=== PATIENT | female | born 1995 | race Two or more races ===

== ENCOUNTER → 2025-03-23 | Outpatient (CLI) | payer MEDICAID, SELFPAY ==
--- NOTE | 2025-03-23 15:47 | XR_ITS ---
Examination: Breast ultrasound, unilateral, left complete Date and time of exam: March 23, 2025 1646 hours INDICATIONS: Left nipple discharge with pain beginning 6 months ago Technique: Real-time garcía scale ultrasonographic imaging performed left breast including all 4 quadrants as well as nipple retroareolar and axillary region. Findings: No cystic or solid mass Impression: BI-RADS Category 1: Negative study
== END | disposition home or self-care (01) ==
LOC: CDIM 15:29
PROVIDERS: PCP Physician Assistant Medical; Referring Provider Physician Assistant Medical; Visit Provider Physician Assistant Medical
DX: N64.52 Nipple discharge (principal)
CPT/HCPCS: 76641

== ENCOUNTER 2025-04-11 23:52 | Emergency (ER) | payer MEDICAID, SELFPAY ==
[2025-04-11 23:52] VITALS: BMI 35.9
[2025-04-11 23:58] VITALS: BP 133/85; PULSE 88; RESP 20; TEMP 36.9; O2SAT 96
[2025-04-12] MEDS: DiphenhydrAMINE INJ 50 MG/ML VIAL 25 MG IVP (00:50)
[2025-04-12] MEDS: MethylPREDNISolone SOD SUCC 62.5 MG/ML 2ML VIAL 125 MG IVP (00:55)
--- NOTE | 2025-04-12 00:55 | EDNOTE_ITS ---
<Statement entered by Ana Calloway MD - 04/14/25 03:42> As co-signing physician, I was present and available for consult prn. I concur with the plan and care as documented by the midlevel provider. ED Allergic Reaction RME/HPI General Chief complaint: Allergic Reaction Stated complaint: ALLERGIC REACTION TO SULFA Time Seen by Provider: 04/12/25 00:31 Arrival date/time: 04/11/25 23:52 29F with no significant PMH presents to ED with 30 min of generalized itchy rash and swelling after taking Bactrim for the first time for a paronychia. Limitations: no limitations Related Data Previous Rx's ?Medication ?Instructions ?Recorded doxycycline hyclate 100 mg tablet 100 mg PO BID 7 days #14 tabs 04/12/25 prednisone 20 mg tablet 20 mg PO BID 3 days #6 tabs 04/12/25 Allergies Allergy/AdvReac Type Severity Reaction Status Date / Time sulfamethoxazole (From Allergy Intermediate Rash Verified 04/12/25 02:48 Bactrim) trimethoprim (From Bactrim) Allergy Intermediate Rash Verified 04/12/25 02:48 Review of Systems Review of Systems Systems Reviewed: All systems reviewed, normal except as documented Constitutional Constitutional: Reports system reviewed and no additional complaints, except as documented, Denies fever(s) and Denies headache(s) ENT Ears, Nose, Mouth, and Throat: Denies disequilibrium and Denies headache(s) Cardiovascular Cardiovascular: Reports system reviewed and no additional complaints, except as documented, Denies chest pain and Denies dyspnea Respiratory Respiratory: Reports system reviewed and no additional complaints, except as documented, Denies cough and Denies dyspnea Gastrointestinal Gastrointestinal: Reports system reviewed and no additional complaints, except as documented, Denies abdominal pain, Denies nausea and Denies vomiting Integumentary/Breasts Skin/Breast: Reports as per HPI, Reports pruritus and Reports rash Neurologic Neurologic: Reports system reviewed and no additional complaints, except as documented, Denies confusion, Denies disequilibrium and Denies headache(s) Psychiatric Psychiatric: Denies confusion Past Medical History Social History SMOKING STATUS: Never smoker ED Exam General Limitations: Present no limitations General appearance: Present alert and in no apparent distress Head Head exam: Present atraumatic Eye Eye exam: Present normal appearance, PERRL and EOMI ENT ENT exam: Present normal exam, normal oropharynx and mucous membranes moist Neck Neck exam: Present normal inspection, full ROM and trachea midline Chest Chest inspection: Present normal inspection and symmetric chest wall rise Respiratory Respiratory exam: Present normal lung sounds bilaterally Cardiovascular Cardiovascular exam: Present regular rate, normal rhythm and normal heart sounds Abdominal Exam Abdominal exam: Present soft and normal bowel sounds Extremities Exam Extremities exam: Present full ROM Expanded Lower Extremity Exam Foot/toe exam: Present full ROM and tenderness (R big toenail paronychia ) Back Exam Back exam: Present normal inspection and full ROM Neurological Exam Neurological exam: Present alert, oriented X3 and CN II-XII intact Psychiatric Psychiatric exam: Present normal affect and normal mood Skin Skin exam: Present warm, dry, intact, normal color and rash Course Quality Measures none Orders Category Date Time Status Optical Scientist Q4H START 00 Care 04/12/25 00:31 Completed Insert IV NOW Care 04/12/25 00:31 Completed DiphenhydrAMINE INJ [Benadryl Inj] Med 04/12/25 00:31 Discontinued 25 mg IVP X1 ONE Doxycycline [Vibramycin] Med 04/12/25 02:27 Discontinued 100 mg PO X1 ONE Famotidine Inj [Pepcid Inj] Med 04/12/25 00:31 Discontinued 20 mg IVP X1 ONE MethylPREDNISolone.* [SoluMEDROL Inj] Med 04/12/25 00:31 Discontinued 125 mg IVP X1 ONE Vital Signs Vital signs: Vital Signs Temperature 98.4 F 04/11/25 23:58 Pulse Rate 88 04/11/25 23:58 Respiratory Rate 20 04/11/25 23:58 Blood Pressure 133/85 H 04/11/25 23:58 Pulse Oximetry (%) 96 04/11/25 23:58 Oxygen Delivery Method Room Air 04/11/25 23:58 O2 at 96% on RA and WNLs Allergic Reaction MDM Narrative MDM Narrative:: 29F with no significant PMH presents to ED with 30 min of generalized itchy rash and swelling after taking Bactrim for the first time for a paronychia. Physical exam reveals generalized urticarial rash and swelling. Mildly increased WOB, but oropharynx clear and RRR. Mild paronychia around R big toenail. Patient is afebrile, alert, but anxious. Meds relieved symptoms. Will swab Bactrim with doxy for paronychia. Patient data External records reviewed:: None Clinical information provided by:: patient Social determinants that could affect healthcare access:: none Patient has the following chronic illnesses:: none How is presenting disease/condition affected by chronic disease/condition?: no chronic disease Evaluation data The following diagnostics were reviewed and interpreted by me:: other (specify) (none) Lab and/or radiology exams considered but not ordered:: not ordered Interpretation Summary: n/a Medications / Prescriptions Medications or Prescriptions considered but not ordered:: ordered Medication administrations:: Medication Administration History Discontinued Medications Diphenhydramine HCl (Diphenhydramine Inj 50 Mg/Ml Vial) 25 mg IVP X1 ONE Stop: 04/12/25 00:32 Last Admin: 04/12/25 00:50 Dose: 25 mg Documented By: JAZMIN Doxycycline Hyclate (Doxycycline 100 Mg Tablet) 100 mg PO X1 ONE Stop: 04/12/25 02:28 Last Admin: 04/12/25 02:43 Dose: 100 mg Documented By: JAZMIN Famotidine (Famotidine Inj 10 Mg/Ml Vial 2 Ml) 20 mg IVP X1 ONE Stop: 04/12/25 00:32 Last Admin: 04/12/25 01:00 Dose: 20 mg Documented By: JAZMIN Methylprednisolone Sodium Succinate (Methylprednisolone Sod Succ 62.5 Mg/Ml 2ml Vial) 125 mg IVP X1 ONE Stop: 04/12/25 00:32 Last Admin: 04/12/25 00:55 Dose: 125 mg Documented By: JAZMIN above Consultations Consultation(s) initiated? (list below): No Diagnosis Differential Diagnosis allergic reaction: anaphylaxis, allergic reaction, angioedema, contact dermatitis, adverse reaction to drug, viral enanthem, urticaria and other (paronychia) Most likely diagnosis given after review of the tests above:: paronychia and alleric reaction Admission Indicated Admission indicated?: not indicated Admission Request Was there a request for admission?: No Disposition Plan Disposition Plan: Discharge Discharge Attestation Discharge Attestation: The patient and all family members were given an opportunity to ask questions and understood the discharge instructions. Discharge instructions specifically effects, indications for sooner follow up or return to the emergency department, and the expected course of current diagnosis. Patient condition: Stable Discharge Plan Plan Patient Disposition: HOME (Self Care) Discharge Disposition comment: Stable Prescriptions/Referrals Prescriptions/Med Rec: New prednisone 20 mg tablet 20 mg PO BID 3 Days Qty: 6 0RF doxycycline hyclate 100 mg tablet 100 mg PO BID 7 Days Qty: 14 0RF Referrals: Temporary Provider,ED [Physician] - In 1 week Problem List Clinical Impression: Allergic reaction, Paronychia Patient/Caregiver Discharge Instructions Education Materials: ED Medicine Reaction: Allergic Additional Instructions: Please follow-up with PCP within 24-48 hours and return immediately if symptoms worsen. Ibuprofen/Tylenol can be used simultaneously for greater fever/pain control. Take OTC antihistamine as needed until symptoms resolve. Finish entire steroid course. Print Language: Liberian Stand Alone Forms: Patient Portal Info Letter PA/CONSUMER RELATIONS COMPLAINT CLERK Supervising Physician PA/CONSUMER RELATIONS COMPLAINT CLERK Supervising Physician: Dr. Calloway
[2025-04-12] MEDS: FAMOTIDINE INJ 10 MG/ML VIAL 2 ML 20 MG IVP (01:00)
[2025-04-12 02:05] VITALS: BP 108/73; PULSE 74; RESP 18; O2SAT 100
[2025-04-12 02:16] VITALS: BP 108/73; PULSE 75; RESP 19; TEMP 36.8; O2SAT 100
[2025-04-12] MEDS: DOXYCYCLINE 100 MG TABLET PO (02:43)
[2025-04-12 02:49] VITALS: BP 105/70; PULSE 80; RESP 18; O2SAT 99
--- NOTE | 2025-04-12 02:53 | PC.NURSE ---
0155 all sx of allergic reaction gone. pt feeling back to normal.
== END 2025-04-12 03:00 | disposition home or self-care (01) ==
PROVIDERS: Emergency Provider Emergency Medicine; PCP Family Medicine
DX: L03.031 Cellulitis of right toe (principal); L27.0 Generalized skin eruption due to drugs and medicaments taken internally; T37.0X5A Adverse effect of sulfonamides, initial encounter
CPT/HCPCS: 96374; 96375; 99284; J1200; J2919; J3490; A9270

== ENCOUNTER → 2025-05-07 | Outpatient (CLI) | payer MEDICAID, SELFPAY ==
[2025-05-03 16:23] LABS: HCG Qualitative,Urine Negative
--- NOTE | 2025-05-07 12:00 | XR_ITS ---
Examination: MRI of brain without intravenous contrast. MRI brain with intravenous contrast. Date and time of exam:May 07, 2025 1221 hours INDICATIONS: Diagnosis hyperprolactinemia nipple discharge left breast 4 months Technique: Multiple axial and sagittal images of the brain to been obtained. Siemens high-resolution 1.52 Jocelyn short bore scanner utilized. Sagittal sections, T1 weighted images, TR 500, TE 14, are performed. Axial sections proton-density and T2-weighted images have been obtained. Inversion recovery axial images, TR 9260, TE 111, TR 2500. Diffusion weighted images, axial sections, TR 4800, TE 128, B value 1000. Axial sections, ADC map, TR 4800, TE 128. Axial and coronal images were also obtained post 17 cc gadolinium administered intravenously. Findings:: Enlargement of the sella turcica is not present. The optic chiasm and infundibular stalk are not remarkable. There is no localized enlargement of the medulla or shun. Fourth ventricle and cerebellar tonsils appear normal in position. No subacute area of hemorrhage density is seen. Fourth ventricle is midline. Mass in the cerebellopontine angle region is not evident. 7th and 8th nerve complexes exhibit symmetry Globes are symmetrical Orbital musculature including medial lateral rectus muscles do not exhibit abnormality Increased white matter signal is evident, punctate focus increased signal left frontal white matter axial image 16 Effacement of the cortical sulcal markings is not identified. Mass effect upon the ventricular system is not identified. Diffusion-weighted images demonstrate no focus of restricted diffusion Contrast images demonstrate no pituitary microadenoma or macroadenoma Impression: Negative for acute hemorrhage mass effect or midline shift No acute infarct Single punctate focus increased signal left frontal white matter, FLAIR axial image 16, consider demyelinating disease No pituitary microadenoma or macroadenoma
== END | disposition home or self-care (01) ==
LOC: SMRI 11:39
PROVIDERS: Referring Provider Specialist; Visit Provider Specialist
DX: R90.82 White matter disease, unspecified (principal); Z32.00 Encounter for pregnancy test, result unknown
CPT/HCPCS: 70553; 81025; A9579